=== PATIENT | female | born 1955 | race Caucasian/White ===

== ENCOUNTER → 2016-10-15 | Outpatient (CLI) | payer OTHER | LOC: BMCIMAGING 15:58 | PROVIDERS: ATTEND Internal Medicine Rheumatology | DX: M17.0 Bilateral primary osteoarthritis of knee (principal); M25.561 Pain in right knee ==

== ENCOUNTER → 2016-11-17 | Outpatient (CLI) | payer OTHER | LOC: FIMAGING 12:07 | PROVIDERS: ATTEND Orthopaedic Surgery | DX: M16.0 Bilateral primary osteoarthritis of hip (principal); M48.06 Spinal stenosis, lumbar region; M51.36 Other intervertebral disc degeneration, lumbar region; M12.88 Other specific arthropathies, not elsewhere classified, other specified site; K57.30 Diverticulosis of large intestine without perforation or abscess without bleeding; I70.0 Atherosclerosis of aorta ==

== ENCOUNTER → 2016-12-14 | Outpatient (CLI) | payer OTHER | LOC: BMCIMAGING 11:07 | PROVIDERS: ATTEND Family Medicine | DX: Z01.818 Encounter for other preprocedural examination (principal); I51.7 Cardiomegaly ==

== ENCOUNTER 2017-01-04 07:15 | Inpatient (IN) | payer OTHER ==
--- NOTE | 2017-01-04 06:33 | PDIAF ---
- Diagnosis Diagnosis: right hip djd Code Status: Full Code - Medication Management Discharge Medications: Medications to Continue on Transfer Aspirin EC [Aspirin EC 81 mg (*)] 81 mg PO DAILY 11/25/16 [Last Taken Unknown] Atorvastatin Calcium [Lipitor 40 mg (*)] 40 mg PO DAILY 11/25/16 [Last Taken Unknown] Cholecalciferol Vit D3 [Vitamin D3 (*)] 1,000 units PO DAILY 11/25/16 [Last Taken Unknown] Cyanocobalamin [Vitamin B12 (*)] 500 mcg PO Q2D 11/25/16 [Last Taken Unknown] Herbals/Supplements -Info Only 1 ea PO DAILY 11/25/16 [Last Taken Unknown] Hydrocodone/Acetaminophen [[place] 5/325 (*)] 1 - 1.5 each PO DAILY 11/25/16 [ Last Taken Unknown] Ibuprofen [Motrin (*)] 600 mg PO BID PRN 11/25/16 [Last Taken Unknown] LORazepam [Ativan (*)] 1 - 2 mg PO HS PRN 11/25/16 [Last Taken Unknown] Levothyroxine [Synthroid 88 mcg (*)] 88 mcg PO DAILY06 11/25/16 [Last Taken Unknown] Lisinopril [Zestril 20 mg (*)] 20 mg PO DAILY 11/25/16 [Last Taken Unknown] Metoprolol Succinate Xr [Toprol Xl 25 mg (*)] 25 mg PO DAILY 11/25/16 [Last Taken Unknown] Pyridoxine HCl [Vitamin B-6 100 mg (*)] 100 mg PO Q2D 11/25/16 [Last Taken Unknown] Ascorbic Acid [Vitamin C 500 mg (*)] 500 mg PO DAILY 12/28/16 [Last Taken Unknown] Discharge Medications: Refer to the Discharge Home Medication list for PRN reason. - Orders Services needed: Physical Therapy Activity/Weight Bearing Restrictions: wbat. anterior hip precautions. daily dressing changes. may shower, no soaking. phan hose x 2 weeks. aspirin 325 mg po daily. f/u at two weeks. seek attn for increasing pain, complaints, s/s infection - Follow Up Care Current Providers and Referrals: Lillian Salas MD [Primary Care Provider] -
--- NOTE | 2017-01-04 06:33 | PDHPUP ---
History & Physical Update H&P update statement: This history and physical update is based on an assessment of the patient which was completed after admission or registration (within 24 hours), but prior to the surgery/procedure.
[2017-01-04] MEDS ORDERED: ROPIVACAINE 0.2% 80 MG, EPINEPHrine 0.2 MG, KETOROLAC TROMETHAMINE 30 MG, morphINE 10 M... IU ONE (10:50)
[2017-01-04] MEDS ORDERED: TRANEXAMIC ACID 3,000 MG in NS 50 ML IRR ONE (10:50)
[2017-01-04] MEDS ORDERED: TRANEXAMIC ACID IV ONE (10:50)
[2017-01-04] MEDS ORDERED: NS IV ONE (10:50)
[2017-01-04] MEDS ORDERED: FAMOTIDINE 20 MG TAB PO ONE (10:50)
[2017-01-04] MEDS ORDERED: VANCOMYCIN PHARMACY TO DOSE MISC ONE (10:50)
[2017-01-04] MEDS ORDERED: LIDOCAINE 1% 2 ML INJ ID PRN (10:53)
[2017-01-04] MEDS ORDERED: LR 1,000 ML IV ONE (10:53)
[2017-01-04] MEDS ORDERED: VANCOMYCIN HCL/NORMAL SALINE 250 ML IV ONE (11:30)
--- NOTE | 2017-01-04 11:43 | PDANEPAE ---
ANE Past Medical History - Cardiovascular History Hx Hypertension: Yes Hx Arrhythmias: No Hx Chest Pain: Yes Hx Coronary Artery / Peripheral Vascular Disease: Yes Hx CHF / Valvular Disease: No Hx Palpitations: No Cardiovascular History Comment: STENTS X2 (SEE ABOVE). HYPERLIPIDEMIA - Pulmonary History Hx COPD: No Hx Asthma/Reactive Airway Disease: No Hx Recent Upper Respiratory Infection: No Hx Oxygen in Use at Home: No Hx Sleep Apnea: Yes Sleep Apnea Screening Result - Last Documented: Negative Pulmonary History Comment: PNA - Neurologic History Hx Cerebrovascular Accident: Yes Hx Seizures: No Hx Dementia: No Neurologic History Comment: TIA PRIOR TO 2009. OCCULAR MIGRAINES - Endocrine History Hx Diabetes: No Endocrine History Comment: HYPOTHYROIDISM - Renal History Hx Renal Disorders: No - Liver History Hx Hepatic Disorders: No - Neurological & Psychiatric Hx Hx Neurological and Psychiatric Disorders: Yes Neurological / Psychiatric History Comment: ANXIETY - Cancer History Hx Cancer: Yes Cancer History Comment: MOLE MALIGNANCY 2014 - Congenital Disorder History Hx Congenital Disorders: No - GI History Hx Gastrointestinal Disorders: Yes Gastrointestinal History Comment: DIVERTICULOSIS - Other Health History Other Health History: LUMBAR SPINE STENOSIS. CHRONIC COSTOCHONDROITIS. 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 ITP. ECZEMA - Chronic Pain History Chronic Pain: Yes - Surgical History Prior Surgeries: APPY @AGE 54. RCA STENT 06/2010, LAD STENT 07/2010 ANE Review of Systems - Exercise capacity METS (RN): 4 METS ANE Patient History - Allergies Allergies/Adverse Reactions: amoxicillin trihydrate [From Augmentin] Allergy (Intermediate, Verified 10:12) Other-Enter Comments potassium clavulanate [From Augmentin] Allergy (Intermediate, Verified 09/06/15 10:12) Other-Enter Comments Sulfa (Sulfonamide Antibiotics) Allergy (Unknown, Verified 07/27/11 16:37) FLUSHING,SWELLING - Home Medications Home Medications: Aspirin EC [Aspirin EC 81 mg (*)] 81 mg PO DAILY 11/25/16 [Last Taken 12/30/16] Atorvastatin Calcium [Lipitor 40 mg (*)] 40 mg PO DAILY 11/25/16 [Last Taken 1 Day Ago] Cholecalciferol Vit D3 [Vitamin D3 (*)] 1,000 units PO DAILY 11/25/16 [Last Taken 1 Week Ago] Cyanocobalamin [Vitamin B12 (*)] 500 mcg PO Q2D 11/25/16 [Last Taken 1 Week Ago] Herbals/Supplements -Info Only 1 ea PO DAILY 11/25/16 [Last Taken 1 Week Ago] Hydrocodone/Acetaminophen [[place] 5/325 (*)] 1 - 1.5 each PO DAILY 11/25/16 [ Last Taken 01/03/17 21:30] Ibuprofen [Motrin (*)] 600 mg PO BID PRN 11/25/16 [Last Taken 12/30/16] LORazepam [Ativan (*)] 1 - 2 mg PO HS PRN 11/25/16 [Last Taken 01/04/17 08:30] Levothyroxine [Synthroid 88 mcg (*)] 88 mcg PO DAILY06 11/25/16 [Last Taken 08:30] Lisinopril [Zestril 20 mg (*)] 20 mg PO DAILY 11/25/16 [Last Taken 1 Day Ago] Metoprolol Succinate Xr [Toprol Xl 25 mg (*)] 25 mg PO DAILY 11/25/16 [Last Taken 01/04/17 08:30] Pyridoxine HCl [Vitamin B-6 100 mg (*)] 100 mg PO Q2D 11/25/16 [Last Taken 1 Week Ago] Ascorbic Acid [Vitamin C 500 mg (*)] 500 mg PO DAILY 12/28/16 [Last Taken 1 Week Ago] - NPO status NPO Since - Liquids (Date): 01/03/17 NPO Since - Liquids (Time): 22:45 NPO Since - Solids (Date): 01/03/17 NPO Since - Solids (Time): 20:30 - Smoking Hx Smoking Status: Heavy smoker - Family Anes Hx Family Hx Anesthesia Complications: NEG ANE Labs/Vital Signs - Vital Signs Blood Pressure: 147/71 Heart Rate: 86 Respiratory Rate: 18 O2 Sat (%): 93 Height: 160.02 cm Weight: 72.575 kg
[2017-01-04] MEDS ORDERED: MIDAZOLAM 2 MG/2 ML VIAL IVP ONE (11:44)
[2017-01-04] MEDS ORDERED: VANCOMYCIN 1 GM/NS 250 ML BAG IV ONE (11:47)
[2017-01-04] MEDS ORDERED: MAGNESIUM HYDROXIDE 30 ML UDCUP PO PRN (12:34)
[2017-01-04] MEDS ORDERED: TEMAZEPAM 15 MG CAP PO PRN (12:34)
[2017-01-04] MEDS ORDERED: ONDANSETRON 4 MG/2 ML VIAL IVP PRN (12:34)
[2017-01-04] MEDS ORDERED: BISACODYL 10 MG SUPP PR PRN (12:34)
[2017-01-04] MEDS ORDERED: POLYETHYLENE GLYCOL 3350 17 GM PKT PO PRN (12:34)
[2017-01-04] MEDS ORDERED: PROMETHAZINE HCL 25 MG SUPPR PR PRN (12:34)
[2017-01-04] MEDS ORDERED: PHARMACY PAIN CONSULT 1 EA MISC PRN (12:34)
[2017-01-04] MEDS ORDERED: diphenhydrAMINE 25 MG CAP PO PRN (12:34)
[2017-01-04] MEDS ORDERED: oxyCODONE IR 5 MG TAB PO PRN (12:34)
[2017-01-04] MEDS ORDERED: traMADol 50 MG TAB PO PRN (12:34)
[2017-01-04] MEDS ORDERED: METOCLOPRAMIDE 10 MG/2 ML VIAL IVP PRN (12:34)
[2017-01-04] MEDS ORDERED: DIPHENOXYLATE/ATROPINE LOMOTIL 1 TAB PO PRN (12:34)
[2017-01-04] MEDS ORDERED: DIAZEPAM 5 MG TAB PO PRN (12:34)
[2017-01-04] MEDS ORDERED: ONDANSETRON DISINTEGRATING 4 MG TAB PO PRN (12:34)
[2017-01-04] MEDS ORDERED: LACTULOSE 20 GM/30 ML UDCUP PO PRN (12:34)
[2017-01-04] MEDS ORDERED: PROMETHAZINE HCL 25 MG/ML INJ IVP PRN (12:34)
[2017-01-04] MEDS ORDERED: MIDAZOLAM 2 MG/2 ML VIAL ONE (12:38)
[2017-01-04] MEDS ORDERED: fentaNYL 100 MCG/2 ML INJ ONE ×2 (12:38→14:35)
[2017-01-04] MEDS ORDERED: THROMBIN (BOVINE) 5,000 UNIT VIAL TP ONE (12:44)
[2017-01-04] MEDS ORDERED: CALCIUM CHLORIDE 1 GM/10 ML INJ ONE (12:44)
[2017-01-04] MEDS ORDERED: PROPOFOL/EMULSION 500 MG/50 ML BOTTLE IV ONE (12:58)
[2017-01-04] MEDS ORDERED: LR 1,000 ML IV SCH (13:00)
--- NOTE | 2017-01-04 14:12 | POSTANESTH ---
Post Anesthetic Evaluation Respiratory Status: Normal, Stable Level of Consciousness/Mental Status: Can Participate in Eval Pain Control: Adequate, Prn Tx Ordered Nausea/Vomiting Control: Adequate, Prn Tx Ordered Complications Possibly Related to Anesthesia: None Noted
[2017-01-04] MEDS ORDERED: ONDANSETRON 4 MG/2 ML VIAL ONE (14:25)
[2017-01-04] MEDS ORDERED: RANITIDINE 50 MG/2 ML VIAL ONE (14:25)
[2017-01-04] MEDS ORDERED: PHENYLEPHRINE HCL 100 MCG/ML SYR ONE (14:25)
[2017-01-04] MEDS ORDERED: epHEDrine SULFATE 10 MG/ML SYR ONE (14:25)
[2017-01-04] MEDS ORDERED: DEXAMETHASONE 4 MG/ML VIAL ONE (14:25)
[2017-01-04] MEDS ORDERED: LIDOCAINE 2% 5 ML SDV ONE (14:25)
[2017-01-04] MEDS ORDERED: PROPOFOL 200 MG/20 ML VIAL ONE (14:27)
[2017-01-04] MEDS: ACETAMINOPHEN 325 MG TAB PO SCH ×2 (17:42→18:26)
[2017-01-04] MEDS: HYDROCODONE/APAP 10/325 TAB PO PRN (19:32)
[2017-01-04] MEDS: ceFAZolin 2 GM/DEXTROSE 100 ML IV SCH (19:42)
[2017-01-04] MEDS: ASPIRIN 325 MG TAB PO SCH (20:01)
[2017-01-04] MEDS: FAMOTIDINE 20 MG TAB PO SCH (20:01)
[2017-01-04] MEDS: SENNOSIDES/DOCUSATE SODIUM TAB PO SCH (20:02)
[2017-01-05] MEDS: ACETAMINOPHEN 325 MG TAB PO SCH ×2 (01:34→05:52)
[2017-01-05] MEDS: HYDROCODONE/APAP 10/325 TAB PO PRN ×2 (01:49→08:36)
[2017-01-05] MEDS: ceFAZolin 2 GM/DEXTROSE 100 ML IV SCH (03:57)
[2017-01-05 04:02] VITALS: RESP 16
[2017-01-05 05:28] LABS: HEMATOCRIT 32.1 % (38.0-47.0); HEMOGLOBIN 11.3 g/dL (12.6-16.3)
[2017-01-05] MEDS ORDERED: LEVOTHYROXINE 88 MCG TAB PO SCH (06:00)
--- NOTE | 2017-01-05 07:23 | PDIAF ---
- Diagnosis Diagnosis: right hip djd Code Status: Full Code - Medication Management Discharge Medications: Medications to Continue on Transfer Aspirin EC [Aspirin EC 81 mg (*)] 81 mg PO DAILY 11/25/16 [Last Taken 12/30/16] Atorvastatin Calcium [Lipitor 40 mg (*)] 40 mg PO DAILY 11/25/16 [Last Taken 1 Day Ago] Cholecalciferol Vit D3 [Vitamin D3 (*)] 1,000 units PO DAILY 11/25/16 [Last Taken 1 Week Ago] Cyanocobalamin [Vitamin B12 (*)] 500 mcg PO Q2D 11/25/16 [Last Taken 1 Week Ago] Herbals/Supplements -Info Only 1 ea PO DAILY 11/25/16 [Last Taken 1 Week Ago] Hydrocodone/Acetaminophen [[place] 5/325 (*)] 1 - 1.5 each PO DAILY 11/25/16 [ Last Taken 01/03/17 21:30] Ibuprofen [Motrin (*)] 600 mg PO BID PRN 11/25/16 [Last Taken 12/30/16] LORazepam [Ativan (*)] 1 - 2 mg PO HS PRN 11/25/16 [Last Taken 01/04/17 08:30] Levothyroxine [Synthroid 88 mcg (*)] 88 mcg PO DAILY06 11/25/16 [Last Taken 08:30] Lisinopril [Zestril 20 mg (*)] 20 mg PO DAILY 11/25/16 [Last Taken 1 Day Ago] Metoprolol Succinate Xr [Toprol Xl 25 mg (*)] 25 mg PO DAILY 11/25/16 [Last Taken 01/04/17 08:30] Pyridoxine HCl [Vitamin B-6 100 mg (*)] 100 mg PO Q2D 11/25/16 [Last Taken 1 Week Ago] Ascorbic Acid [Vitamin C 500 mg (*)] 500 mg PO DAILY 12/28/16 [Last Taken 1 Week Ago] Aspirin [Aspirin 325 mg (*)] 325 mg PO DAILY #0 tab 01/05/17 [Last Taken Unknown ] HYDROcodone/APAP 10/325 [[place] 10/325 (*)] 1 - 2 tab PO Q6H PRN #70 tab [Last Taken Unknown] Discharge Medications: Refer to the Discharge Home Medication list for PRN reason. - Orders Services needed: Physical Therapy Diet Recommendation: no restrictions on diet Diet Texture: Regular Texture Diet Activity/Weight Bearing Restrictions: wbat. anterior hip precautions. daily dressing changes. may shower, no soaking. phan hose x 2 weeks. aspirin 325 mg po daily. f/u at two weeks. seek attn for increasing pain, complaints, s/s infection - Follow Up Care Current Providers and Referrals: Lillian Salas MD [Primary Care Provider] -
[2017-01-05 07:48] VITALS: BP 126/70; PULSE 67; TEMP 98
[2017-01-05] MEDS: FAMOTIDINE 20 MG TAB PO SCH (08:36)
[2017-01-05] MEDS: SENNOSIDES/DOCUSATE SODIUM TAB PO SCH (08:36)
[2017-01-05] MEDS: ASPIRIN 325 MG TAB PO SCH (08:36)
[2017-01-05] MEDS ORDERED: ATORVASTATIN CALCIUM 40 MG TAB PO SCH (09:00)
[2017-01-05] MEDS ORDERED: METOPROLOL SUCCINATE XR 25 MG TAB PO SCH (09:00)
[2017-01-05] MEDS ORDERED: LISINOPRIL 20 MG TAB PO SCH (09:00)
[2017-01-05 10:48] VITALS: O2SAT 94
--- NOTE | 2017-01-05 12:32 | GDS ---
[f rep st] DISCHARGE SUMMARY ADMISSION DIAGNOSIS: Right hip degenerative joint disease. DISCHARGE DIAGNOSIS: Right hip degenerative joint disease. PROCEDURE: Right total hip arthroplasty. HISTORY OF PRESENT ILLNESS: The patient is a 61-year-old woman with end-stage arthritis to her righ t hip. Clinical and radiographic features are consistent with this. She has failed all attempts at conservative management. I have recommended operative intervention. She understood the risks, vlad efits, and alternatives and wished to proceed. Written consent was signed and placed in [facility]. HOSPITAL COURSE: The patient was admitted overnight after uncomplicated total hip arthroplasty. e tolerated the procedure well. At the time of discharge, she is tolerating an oral diet. Her pain is well controlled on oral medicines. She is voiding without difficulty. Dressings are clean, dry , and intact. She has no calf swelling or tenderness. X-rays are stable with anatomic alignment. No fracture or lucency. DISCHARGE ACTIVITY: She is weightbearing as tolerated. Anterior hip precautions. Daily dressing c hanges. No soaking or immersion. May shower without the bandage. BARRY hose x2 weeks. DISCHARGE INSTRUCTIONS: Follow up in 2 weeks. Seek attention for increasing redness, swelling, gibran inage or discharge. DISCHARGE MEDICATIONS: Hydrocodone 10/325, 1-2 every 6 hours p.r.n. pain, aspirin 325 mg p.o. daily . Copy requested to: Primary Care Physician /[id number]/MODL
--- NOTE | 2017-01-10 08:25 | GOP ---
[f rep st] OPERATIVE REPORT DATE OF OPERATION: 01/04/2017 SURGEON: Clovis Guerrero MD BARREL BRANDER: Vamshi Flores, HOME CARE MANAGER, [facility], who was a medical necessity for the entirety of the case. PREOPERATIVE DIAGNOSIS: Right hip degenerative joint disease. POSTOPERATIVE DIAGNOSIS: Right hip degenerative joint disease. PROCEDURE PERFORMED: Right total hip arthroplasty. FINDINGS: SPECIMENS: To Pathology, the femoral head. INDICATIONS: The patient is a 61-year-old woman who has end-stage arthritis to her right hip. She has clinical radiograph features consistent with this. She has failed all attempts at conservative management. I have, therefore, recommended total hip replacement. She understood the risks, benefi ts, alternatives, and wished to proceed. Written consent was signed and placed in patient's chart. DESCRIPTION OF PROCEDURE: The patient was identified in the preanesthesia area. The right hip emelina rly demarcated as operative site with indelible marker. She was given 1 g of vancomycin IV en route to the operative suite. In the OR, general endotracheal anesthesia was administered. Attention wa s turned to the pelvis and both lower extremities, which were sterilely prepped and draped in the us ual fashion. Appropriate time-out procedure was carried out. The attention was first turned to the left hemipelvis. A 2 cm incision was made over the ASIS and iliac crest. Three pins were placed f or the pelvic reference array. This was affixed without difficulty. Attention was then turned to t he right hip. An anterior approach was made. Thick subcutaneous flaps were elevated, followed by e levation of the tensor fascia off the tensor musculature. Tensor was then retracted laterally. The underlying crossing vascular structures were identified, ligated, cauterized, and transected. The rectus elevated off the anterior capsule. Retractors were placed in an extracapsular position. A T was made in the capsule. The retractor was then placed into an intracapsular position. The pelvic reference array check point was then placed. A bony wedge was removed from the femoral neck, follo wed by removal of the head remnant. The remnants of the acetabular labrum were sharply excised. In single-reaming stage, a 52 mm reamer was used in opening angle of 40 degrees and anteversion of 20 degrees. A 52 mm titanium cup was then placed and confirmed to be fully seated. A 0-degree X3 line r was then placed and confirmed to be fully seated. Attention was then turned to the femur. The fe mur was delivered through the use of extension of the table and soft tissue retractors. The proxima l canal was opened and broached to a size 4 stem. A trial reduction ultimately with a 32 mm +0 mm n phu length head was selected. This was restored appropriate leg lengths. It was stable with full e xtension and external rotation to 90 degrees. An intraoperative fluoroscopic picture was taken and demonstrated appropriate positioning. The pelvic check point had become incarcerated behind the melvi tabular shell; however, the shell was stable and fully impacted and was, therefore, left intentional ly. A size 4 stem was then placed across the proximal opening of the femur. Additional trialing wa s carried out, and ultimately a 32 mm +0 mm Biolox head was then impacted across the trunnion. The hip was then copiously irrigated with pulsatile lavage solution. Reduced, taken through a full rang e of motion. Stability profile was appropriate as previous. The wound was then closed in layers wi th 0 Vicryl for the tensor. The deep tissues were sprayed with a platelet-rich plasma solution, and the tissue was injected with a joint cocktail of ropivacaine, morphine, Toradol, and epinephrine. The subcutaneous tissue was closed using 2-0 Monocryl, and the skin was stapled. Sterile dressing w as applied. The patient was awakened, extubated, taken to recovery room in good, stable condition. TOTAL TOURNIQUET TIME: None. COMPLICATIONS: None. IMPLANTS: Margie Titanium acetabular shell size 52 mm, Trident X3 0-degree polyethylene insert, 32 mm Biolox Delta ceramic head, 32 mm +0 mm neck length, and Accolade II 127-degree neck angle hip st em size 4. Copy requested to: Primary Care Physician /[id number]/MODL
== END 2017-01-05 12:08 | disposition home health service (06) | DRG 470 ==
LOC: F3N 10:06
PROVIDERS: ADMIT Orthopaedic Surgery; ATTEND Orthopaedic Surgery
PROC: 0SR904Z Replacement of Right Hip Joint with Ceramic on Polyethylene Synthetic Substitute, Open Approach (ICD-10-PCS; principal; 2017-01-04 12:15)
DX: M16.11 Unilateral primary osteoarthritis, right hip (principal); I10 Essential (primary) hypertension; I25.10 Atherosclerotic heart disease of native coronary artery without angina pectoris; E78.5 Hyperlipidemia, unspecified; F17.210 Nicotine dependence, cigarettes, uncomplicated
CPT/HCPCS: 97116-GP; 97161-GP; 97166-GO; J0171; J0690; J1100; J1885; J2250; J2370; J2405; J2704; J2780; J2795; J3010; J3370

== ENCOUNTER → 2017-01-15 | Outpatient (CLI) | payer OTHER | LOC: FIMAGING 13:09 | PROVIDERS: ATTEND Physician Assistant | DX: Z96.698 Presence of other orthopedic joint implants (principal) ==

== ENCOUNTER → 2017-02-23 | Outpatient (CLI) | payer OTHER | LOC: BMCIMAGING 10:27 | PROVIDERS: ATTEND Physician Assistant | DX: Z47.1 Aftercare following joint replacement surgery (principal); Z96.641 Presence of right artificial hip joint; M16.12 Unilateral primary osteoarthritis, left hip ==

== ENCOUNTER → 2017-03-08 | Outpatient (CLI) | payer OTHER | LOC: BMCIMAGING 11:03 | PROVIDERS: ATTEND Orthopaedic Surgery | DX: M25.552 Pain in left hip (principal) ==

== ENCOUNTER → 2017-04-19 | Outpatient (CLI) | payer OTHER | LOC: BMCIMAGING 09:34 | PROVIDERS: ATTEND Orthopaedic Surgery | DX: Z47.1 Aftercare following joint replacement surgery (principal); M16.12 Unilateral primary osteoarthritis, left hip; Z96.641 Presence of right artificial hip joint ==

== ENCOUNTER 2017-05-12 16:16 | Emergency (ER) | payer OTHER ==
[~2017-05-12 16:16] MED LIST: IOPAMIDOL (ISOVUE 370) 100 ML BTL IV ONE
--- NOTE | 2017-05-12 16:29 | EDPHY ---
HPI/HX/ROS/PE/MDM Narrative: CHIEF COMPLAINT: Double vision HISTORY OF PRESENT ILLNESS: The patient is a 61 y/o female with a history of hypertension and hyperlipidemia and a TIA complaining of double vision. Describes a long history of intermittent diploplia and occasional ocular migraines. States symptoms have worsened over the past several weeks. In 2007 she had a TIA associated with balance difficulty and a severe headache. Today she saw Dr. Acuña, neurologist, for the diplopia and was noted to have right eye found ptosis on exam. An outpatient CT head and CT angiogram of neck and head was ordered. These studies revealed a possible dissection vs. congenital anomaly of the left vertebral artery. Patient was then referred to ED. She has felt mildly off balance recently, which she attributes to her hip and knee problems. Cannot remember if she had double vision today. Currently denies headache, double vision, speech or swallowing difficulties, focal numbness or weakness. Denies upper extremity or facial numbness. No fever, chills, chest pain, shortness of breath, palpitations, vomiting, diarrhea, urinary complaints , headache, lightheadedness, pedal edema. REVIEW OF SYSTEMS: Aside from elements discussed in the HPI, a comprehensive 10-point review of systems was reviewed and is negative. PAST MEDICAL HISTORY: Hypertension, hypercholesteremia, ACS, stent x 2 (2011), TIA 2007 SOCIAL HISTORY: , lives in [place], retired, smoker VITAL SIGNS HR: 107, BP: 204/104, others reviewed by me as normal. GENERAL: Well-developed, well-nourished, alert, oriented, no acute distress. HEENT: Atraumatic. Eyes: PERRL, EOMI, no nystagmus. No ptosis noted on my examination. No icterus. No injection. Mouth: moist mucous membranes. No erythema or lesions. Neck: Nontender to palpation. No adenopathy. No meningismus. LUNGS: Clear to auscultation bilaterally, no wheezes, rhonchi or rales. CARDIAC: Regular rate and rhythm, no rubs, murmurs or gallops. ABDOMEN: Soft, nontender, nondistended, bowel sounds normal. BACK: No CVA tenderness. EXTREMITIES: No trauma. Mild bilateral pedal edema, patient states chronic. Range of motion is normal throughout. NEURO: Alert and oriented, cranial nerves II through XII are intact. Motor strength 5 over 5 in all major muscle groups. Sensation intact to light touch. Usepok-li-[id number], [id number] normal. Gait normal. SKIN: Warm and dry, no rash. PSYCHIATRIC: Normal mentation, no agitation. Portions of this note were transcribed by a medical director/head team physician. I personally performed a history, physical exam, medical decision making, and confirmed accuracy of information the transcribed note. ED Course: The patient is a 61 y/o female with a history of hypertension and a TIA presenting with diplopia and ptosis at her neurologist's office. Her neurologist , Dr. Acuña, ordered imaging studies which demonstrated a possible occlusion vs congenital anomaly of her left vertebral artery. Due to these findings she was sent to the ED for further evaluation. Her physical exam is normal in the ED. MRI of the brain ordered to evaluate for evidence of cerebral vascular accident and MR angiograms of the neck ordered to further evaluate CT finding. 164: 12-LEAD EKG: Please see the full report in [facility]. My interpretation: Normal sinus rhythm with a rate of 95 and low voltage in the frontal leads. 185: Spoke with Dr. 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 1945: Consulted with Dr. Dempsey, neurologist, regarding the patient's symptoms. As the patient is currently not having acute neurologic symptoms, and the finding on the MRI is of questionable age, plan will be to start the patient on 81 mg of aspirin a day and have her follow up with her neurologist. I discussed this with the patient, however, she does tell me that she already takes 81 mg of aspirin a day. She was advised to begin taking 325 mg of aspirin daily and follow up closely with Dr. Acuña within the next 1-2 days. Return precautions provided; patient is comfortable with this plan. MDM: Differential diagnoses the patient's presenting complaints was considered including but not limited to MS, TIA, CVA, hemorrhagic cysts cerebral vascular accident, hyperglycemia, complex migraine, tumor, seizure, electrolyte abnormality, dissection, thrombus. - Data Points Imaging Results: Imaging Impressions Brain MRI 05/12/17 16:29 Impression: MRI brain: 1. No acute abnormalities. 2. Chronic microvascular ischemic changes in the encarnacion radiata and centrum semiovale bilaterally, increased since 2008. Cervical MRA: 1. Diminutive left vertebral artery which probably fills in a retrograde fashion, as suggested on comparison CTA. The intracranial left vertebral artery flow-void appears larger in caliber on prior exam in 2008, suggesting that dissection/occlusion may have occurred since that time. There is no definite evidence that it is acute, however. Dr. Thompson discussed these findings by telephone with Mariel Contreras MD on 05/12/2017 at 1855 hours and again at 19:15 hours. Neck MRA 05/12/17 16:30 Impression: MRI brain: 1. No acute abnormalities. 2. Chronic microvascular ischemic changes in the encarnacion radiata and centrum semiovale bilaterally, increased since 2008. Cervical MRA: 1. Diminutive left vertebral artery which probably fills in a retrograde fashion, as suggested on comparison CTA. The intracranial left vertebral artery flow-void appears larger in caliber on prior exam in 2008, suggesting that dissection/occlusion may have occurred since that time. There is no definite evidence that it is acute, however. Dr. Thompson discussed these findings by telephone with Mariel Contreras MD on 05/12/2017 at 1855 hours and again at 19:15 hours. Imaging: Discussed imaging studies w/ physician office secretary Radiologist Laboratory Results: Laboratory Results 05/12/17 16:36 05/12/17 16:36 Medications Given: Discontinued Medications Aspirin (Aspirin) 81 mg PO EDNOW ONE Stop: 05/12/17 19:49 Last Admin: 05/12/17 20:24 Dose: Not Given Aspirin (Aspirin) 243 mg PO EDNOW ONE Stop: 05/12/17 20:15 Last Admin: 05/12/17 20:15 Dose: 243 mg General Time Seen by Provider: 05/12/17 16:22 Initial Vital Signs: Initial Vital Signs Temperature (C) 36.4 C 05/12/17 16:34 Heart Rate 107 H 05/12/17 16:34 Respiratory Rate 12 05/12/17 16:34 Blood Pressure 204/104 H 05/12/17 16:34 O2 Sat (%) 98 05/12/17 16:34 O2 Delivery Mode Room Air Allergies/Adverse Reactions: amoxicillin trihydrate [From Augmentin] Allergy (Intermediate, Verified 10:12) Other-Enter Comments potassium clavulanate [From Augmentin] Allergy (Intermediate, Verified 09/06/15 10:12) Other-Enter Comments Sulfa (Sulfonamide Antibiotics) Allergy (Unknown, Verified 07/27/11 16:37) FLUSHING,SWELLING Home Medications: Medication Instructions Recorded Aspirin EC [Aspirin EC 81 mg (*)] 81 mg PO DAILY 11/25/16 Atorvastatin Calcium [Lipitor 40 40 mg PO DAILY 11/25/16 mg (*)] Cholecalciferol Vit D3 [Vitamin D3 1,000 units PO DAILY 11/25/16 (*)] Cyanocobalamin [Vitamin B12 (*)] 500 mcg PO Q2D 11/25/16 Herbals/Supplements -Info Only 1 ea PO DAILY 11/25/16 Hydrocodone/Acetaminophen [[place] 1 - 1.5 each PO DAILY 11/25/16 5/325 (*)] Ibuprofen [Motrin (*)] 600 mg PO BID PRN 11/25/16 LORazepam [Ativan (*)] 1 - 2 mg PO HS PRN 11/25/16 Levothyroxine [Synthroid 88 mcg 88 mcg PO DAILY06 11/25/16 (*)] Lisinopril [Zestril 20 mg (*)] 20 mg PO DAILY 11/25/16 Metoprolol Succinate Xr [Toprol Xl 25 mg PO DAILY 11/25/16 25 mg (*)] Pyridoxine HCl [Vitamin B-6 100 mg 100 mg PO Q2D 11/25/16 (*)] Ascorbic Acid [Vitamin C 500 mg 500 mg PO DAILY 12/28/16 (*)] Aspirin [Aspirin 325 mg (*)] 325 mg PO DAILY #0 tab 01/05/17 HYDROcodone/APAP 10/325 [[place] 1 - 2 tab PO Q6H PRN #70 tab 01/05/17 10/325 (*)] Departure - Departure Disposition: Home, Routine, Self-Care Clinical Impression: Diplopia, Left vertebral artery dissection, unknow Condition: Good Instructions: Diplopia (ED) Additional Instructions: Take 325mg Aspirin daily. Follow-up with your neurologist tomorrow. Return to the Emergency Department for severe headache, vomiting, vision changes , confusion, fever or other concerns. Referrals: Carmen Acuña DO [Non Staff and Non MD] - As per Instructions Report Scribed for: Mariel Contreras Report Scribed by: Amee Olivas Date of Report: 05/12/17 Time of Report: 16:28
--- NOTE | 2017-05-12 16:43 | CPEKG ---
Heart Rate: 95 RR Interval: 632 P-R Interval: 144 QRSD Interval: 82 QT Interval: 360 QTC Interval: 453 P [place]: 60 QRS [place]: 17 T Wave [place]: 27 EKG Severity - BORDERLINE ECG - EKG Impression: SINUS RHYTHM EKG Impression: PROBABLE LEFT ATRIAL ABNORMALITY EKG Impression: LOW VOLTAGE IN FRONTAL LEADS Electronically Signed By: Connor Willard 12-May-2017 21:51:37
[2017-05-12 16:49] LABS: % IMMATURE GRANULYOCYTES 0.2 % (0.0-1.1); ABSOLUTE IMMATURE GRANULOCYTES 0.02 10^3/uL (0.00-0.10); ADD DIFF? NO; ADD MORPH? NO; ADD SCAN? NO; ATYPICAL LYMPHOCYTE FLAG 0 (0-99); FRAGMENT RBC FLAG 0 (0-99); HEMATOCRIT 47.2 % (38.0-47.0); HEMOGLOBIN 16.4 g/dL (12.6-16.3); LEFT SHIFT FLG 0 (0-99); LIPEMIA HEMOLYSIS FLAG 90 (0-99); MEAN CELL HEMOGLOBIN 32.9 pg (27.9-34.1); MEAN CELL HEMOGLOBIN CONCENTR. 34.7 g/dL (32.4-36.7); MEAN CELL VOLUME 94.6 fL (81.5-99.8); MEAN PLATELET VOLUME 10.4 fL (8.7-11.7); PLATELET CLUMPS FLAG 10 (0-99); PLATELET COUNT 105 10^3/uL (150-400); RED BLOOD CELL COUNT 4.99 10^6/uL (4.18-5.33); RED CELL DISTRIBUTION WIDTH 12.7 % (11.5-15.2)
[2017-05-12 16:58] LABS: ANION GAP 15 mEq/L (8-16); CALCIUM 9.6 mg/dL (8.5-10.4); CARBON DIOXIDE 22 mEq/l (22-31); CHLORIDE 102 mEq/L (97-110); CREATININE 0.8 mg/dL (0.6-1.0); GLOMERULAR FILTRATION RATE > 60; GLUCOSE 117 mg/dL (70-100); POTASSIUM 4.2 mEq/L (3.5-5.2); SODIUM 139 mEq/L (134-144)
[2017-05-12 17:01] LABS: INR 0.91 (0.83-1.16); PROTIME(PATIENT) 12.5 SEC (12.0-15.0)
[2017-05-12 17:09] LABS: TROPONIN I < 0.012 ng/mL (0.000-0.034)
[2017-05-12] MEDS ORDERED: GADOBUTROL 10 ML VIAL IVP ONE ×2 (17:13→17:18)
[2017-05-12 18:13] VITALS: RESP 16
[2017-05-12] MEDS ORDERED: ASPIRIN 81 MG CHEWABLE TAB PO ONE ×2 (19:48→20:14)
[2017-05-12] MEDS ORDERED: ASPIRIN 81 MG CHEWABLE TAB ONE (20:05)
[2017-05-12 20:14] VITALS: PULSE 78; TEMP 96.8; O2SAT 93
[2017-05-12 20:22] VITALS: BP 149/84
== END 2017-05-12 20:24 | disposition home or self-care (01) ==
LOC: EDSTATUS 18:00
DX: H53.2 Diplopia (principal); I77.74 Dissection of vertebral artery; I10 Essential (primary) hypertension; F17.200 Nicotine dependence, unspecified, uncomplicated; Z79.82 Long term (current) use of aspirin
CPT/HCPCS: A9585; Q9967

== ENCOUNTER → 2017-05-18 | Outpatient (CLI) | payer OTHER | LOC: BMCIMAGING 12:27 | PROVIDERS: ATTEND Family Medicine | DX: Z12.31 Encounter for screening mammogram for malignant neoplasm of breast (principal) | CPT/HCPCS: G0202 ==

== ENCOUNTER → 2017-07-20 | Outpatient (CLI) | payer OTHER | LOC: BMCIMAGING 10:36 | PROVIDERS: ATTEND Physician Assistant | DX: Z47.1 Aftercare following joint replacement surgery (principal); Z96.641 Presence of right artificial hip joint ==

== ENCOUNTER → 2017-08-04 | Outpatient (CLI) | payer OTHER | LOC: BMCIMAGING 11:38 | PROVIDERS: ATTEND Physician Assistant | DX: M51.36 Other intervertebral disc degeneration, lumbar region (principal); M43.16 Spondylolisthesis, lumbar region; M41.26 Other idiopathic scoliosis, lumbar region; M48.061 Spinal stenosis, lumbar region without neurogenic claudication ==

== ENCOUNTER → 2018-02-16 | Outpatient (CLI) | payer OTHER | LOC: BMCIMAGING 12:58 | PROVIDERS: ATTEND Family Medicine | DX: Z01.810 Encounter for preprocedural cardiovascular examination (principal); I51.7 Cardiomegaly ==

== ENCOUNTER → 2018-05-19 | Outpatient (CLI) | payer OTHER | LOC: BMCIMAGING 12:29 | PROVIDERS: ATTEND Family Medicine | DX: Z12.31 Encounter for screening mammogram for malignant neoplasm of breast (principal) ==